=== PATIENT | male | born 1970 | race Caucasian/White ===

== ENCOUNTER 2017-10-21 17:44 | Emergency (ER) | payer SELFPAY ==
[2017-10-21 17:49] VITALS: BP 123/95; PULSE 100; TEMP 98.4; BMI 88.7
--- NOTE | 2017-10-21 18:21 | PDOC ---
History of Present Illness - General Chief Complaint: Ear Problem Stated Complaint: EAR PROBLEM Time Seen by Provider: 10/21/17 17:57 History Source: Patient Exam Limitations: No Limitations - History of Present Illness Initial Comments: 10/21/17 18:51 This is a 46 year old male with past medical history of hypertension and tinnitis who presents emergency Department with 4+ weeks of right earache and buzzing sound in his right ear. Patient states she was treated for this in the past and told that it was a side effect of receiving naproxen. Patient states after stopping naproxen, the tinnitis slowly went away. He denies any headaches , dizziness, fevers, chills, discharge or drainage from the ears, sore throat, shortness of breath, cough, chest pain. Past History - Past Medical History Allergies/Adverse Reactions: Allergies Allergy/AdvReac Type Severity Reaction Status Date / Time No Known Allergies Allergy Verified 10/21/17 17:47 Home Medications: Ambulatory Orders Amlodipine Besylate [Norvasc -] 10 mg PO DAILY 12/20/13 Losartan/Hydrochlorothiazide [Losartan-Hctz 100-25 mg Tab] 1 each PO DAILY 12/20 Amoxicillin - [Amoxicillin 500mg Capsule -] 500 mg PO BID #14 capsule 10/21/17 COPD: No HTN: Yes - Immunization History Immunization Up to Date: Yes - Suicide/Smoking/Psychosocial Hx Smoking History: Never smoked Have you smoked in the past 12 months: No Information on smoking cessation initiated: No Hx Alcohol Use: Yes (occasion) Substance Use Type: None Review of Systems - Review of Systems Able to Perform ROS?: Yes Is the patient limited Welsh proficient: No Constitutional: No: Symptoms Reported HEENTM: Yes: See HPI Respiratory: No: Symptoms reported Cardiac (ROS): No: Symptoms Reported ABD/GI: No: Symptoms Reported : No: Symptoms Reported Musculoskeletal: No: Symptoms Reported Integumentary: No: Symptoms Reported Neurological: No: Symptoms reported Endocrine: No: Symptoms Reported Hematologic/Lymphatic: No: Symptoms Reported *Physical Exam - Vital Signs Last Vital Signs Temp Pulse Resp BP Pulse Ox 98.4 F 100 H 18 123/95 100 10/21/17 17:47 10/21/17 17:47 10/21/17 17:47 10/21/17 17:47 10/21/17 17:47 - Physical Exam General Appearance: Yes: Appropriately Dressed. No: Apparent Distress HEENT: positive: Pharynx Normal, TM Bulging (right side). negative: Nasal Congestion, Rhinorrhea, Sinus Tenderness Neck: positive: Trachea midline, Supple Respiratory/Chest: positive: Lungs Clear, Normal Breath Sounds. negative: Respiratory Distress, Accessory Muscle Use Cardiovascular: positive: Regular Rhythm, Regular Rate. negative: Murmur Musculoskeletal: positive: Normal Inspection. negative: CVA Tenderness Extremity: positive: Normal Capillary Refill, Normal Inspection Integumentary: positive: Normal Color, Dry, Warm Neurologic: positive: clinical sciences professor II-XII NML intact, Fully Oriented, Alert, Normal Mood/ Affect, Normal Response, Motor Strength 5/5, Finger to Nose. negative: Numbness Medical Decision Making - Medical Decision Making 10/21/17 18:48 A/P: 46-year-old male past medical history of hypertension and intermittent tinnitus presents to the emergency departments with right earache with his usual tinnitus Right TM bulging with erythema present. External auditory canal clear without erythema or exudate Left TM within normal limits No tenderness to palpation of tragus, mastoid, other periauricular areas bilaterally Oropharynx clear without erythema or exudates Cranial nerves II through XII grossly intact. Gait steady. Strength 5/5 in all extremities Given absence of focal neurologic findings I will defer imaging at this time. I will treat the patient for otitis media and given follow-up referral to Dr. Hogan for evaluation of his blood pressure medications to see if tendinitis is a side effect *DC/Admit/Observation/Transfer Diagnosis at time of Disposition: Otitis media Qualifiers: Otitis media type: unspecified Laterality: right Qualified Code(s): H66.91 - Otitis media, unspecified, right ear Tinnitus Qualifiers: Laterality: right Qualified Code(s): H93.11 - Tinnitus, right ear - Discharge Dispostion Disposition: HOME Condition at time of disposition: Stable Admit: No - Prescriptions Prescriptions: Amoxicillin - [Amoxicillin 500mg Capsule -] 500 mg PO BID #14 capsule - Referrals Referrals: Yves Hogan MD [Staff Physician] - - Patient Instructions Additional Instructions: Take amoxicillin 500 mg twice a day as prescribed. Take Tylenol as needed for fever and pain. Follow manufacturers instructions for appropriate dosage. Make an appointment with your doctor for reevaluation symptoms do not improve in the next 4 days. Return to emergency department for worsening pain, fevers even while giving medication, drainage from the ears, change in child's behavior, or any other concerns. Thank you very much for choosing us to provide your emergent healthcare needs. - Post Discharge Activity
== END 2017-10-21 18:23 | disposition home or self-care (01) ==
LOC: JERFT 17:44
DX: H66.91 Otitis media, unspecified, right ear (principal); H93.11 Tinnitus, right ear; I10 Essential (primary) hypertension
CPT/HCPCS: 99281-25

== ENCOUNTER 2021-04-09 21:18 | Emergency (ER) | payer BC, OTHER ==
[2021-04-09 21:25] VITALS: TEMP 98.2; BMI 32.4
[2021-04-09] MEDS ORDERED: ACETAMINOPHEN 500 MG TABLET (FP) PO ONE (22:18)
[2021-04-09] MEDS ORDERED: ACETAMINOPHEN INJECTION 100 ML IVPB ONE (23:25)
[2021-04-09] MEDS ORDERED: ACETAMINOPHEN 500 MG TABLET (FP) ONE (23:25)
[2021-04-09 23:45] LABS: BASO % 0.7 % (0-2.0); EOS % 1.4 % (0-4.5); HEMOGLOBIN 14.8 GM/dL (11.7-16.9); LYMPH % 22.3 % (8-40); MCHC 33.7 g/dl (32.0-35.9); MEAN CELL VOLUME 86.2 fl (80-96); MEAN PLT VOLUME 10.1 fl (7.5-11.1); MONO % 9.4 % (3.8-10.2); NEUT % 66.2 % (42.8-82.8); PLATELET COUNT 175 10^3/uL (134-434); RDW 13.9 % (11.9-15.9); WHITE BLOOD COUNT 8.9 K/mm3 (4.0-10.0)
[2021-04-09] MEDS ORDERED: MAG HYDROX/AL HYDROX/SIMETH 30 ML UNIT-DOSE CUP PO ONE (23:54)
[2021-04-10] MEDS ORDERED: IBUPROFEN 600 MG TABLET (FP) PO ONE ×2 (00:01→00:09)
[2021-04-10] MEDS ORDERED: METHOCARBAMOL 500 MG TABLET PO ONE (00:01)
[2021-04-10 00:02] LABS: CHLORIDE 109 mmol/L (98-107); SODIUM 143 mmol/L (136-145)
[2021-04-10 00:04] LABS: ALBUMIN 3.5 g/dl (3.4-5.0); ANION GAP 3 MMOL/L (8-16); BLOOD UREA NITROGEN 15.9 mg/dL (7-18); CALCIUM 8.3 mg/dL (8.5-10.1); CO2 31 mmol/L (21-32); GLUCOSE,RANDOM 64 mg/dL (74-106)
[2021-04-10 00:07] LABS: SGOT/AST 17 U/L (15-37); SGPT/ALT 26 U/L (13-61)
[2021-04-10 00:08] LABS: CREATININE 0.8 mg/dL (0.55-1.3)
[2021-04-10 00:09] LABS: BILIRUBIN,TOTAL 0.3 mg/dL (0.2-1); TOT PROT 6.9 g/dl (6.4-8.2)
[2021-04-10] MEDS ORDERED: MAG HYDROX/AL HYDROX/SIMETH 30 ML UNIT-DOSE CUP ONE (00:09)
[2021-04-10] MEDS ORDERED: METHOCARBAMOL 500 MG TABLET ONE (00:09)
[2021-04-10 00:10] LABS: ALK PHOS 88 U/L (45-117)
[2021-04-10 00:28] VITALS: BP 135/76; PULSE 68
== END 2021-04-10 00:32 | disposition home or self-care (01) ==
LOC: JER 21:18
DX: S20.212A Contusion of left front wall of thorax, initial encounter (principal); S29.011A Strain of muscle and tendon of front wall of thorax, initial encounter
CPT/HCPCS: 36415; 71046-TC-FY; 80053; 82550; 84484; 85025; 93005; 93010; 99284-25; C9803; U0003; U0005